=== PATIENT | male | born 1985 | race Caucasian/White ===

== ENCOUNTER → 2020-10-27 | Outpatient (CLI) | payer BC | END | disposition home or self-care (01) | LOC: LABWHC1 15:43 | PROVIDERS: ATTEND Emergency Medicine | DX: U07.1 COVID-19 (principal) | CPT/HCPCS: U0003; C9803; U0005 ==

== ENCOUNTER 2022-05-10 06:08 | Day surgery (SDC) | payer BC ==
[2022-05-08 15:49] VITALS: BMI 35.9
[~2022-05-10 06:08] MED LIST: HEPARIN SODIUM,PORCINE/PF 5,000 UNIT/0.5 ML SYRINGE SQ PRN; Pre Op ABX Message 1 EACH MISC MISCELLANE ONE
[2022-05-10] MEDS ORDERED: DEXAMETHASONE SOD PHOSPHATE 4 MG/ML 1 ML VIAL IV ONE (06:42)
[2022-05-10] MEDS ORDERED: MIDAZOLAM 2 MG/2 ML VIAL IV PRN (06:42)
[2022-05-10] MEDS ORDERED: ONDANSETRON 4 MG/2 ML VIAL IVP ONE (06:42)
[2022-05-10] MEDS ORDERED: SCOPOLAMINE 1 MG/72 HR PATCH TRANSDERM ONE (06:42)
[2022-05-10] MEDS ORDERED: GABAPENTIN 300 MG CAP PO STA (06:55)
[2022-05-10] MEDS ORDERED: ACETAMINOPHEN TAB 500 MG TAB PO STA (06:55)
[2022-05-10] MEDS ORDERED: MELOXICAM 7.5 MG TAB PO PRN (06:55)
--- NOTE | 2022-05-10 06:55 | P.GSHP ---
History of Present Illness H&P Date: 05/10/22 CHIEF COMPLAINT: Neck mass HISTORY OF PRESENT ILLNESS: The patient is a 72 year-old male with history of mass along the posterior neck. He presents today for surgical excision. PAST MEDICAL HISTORY: Please see list. PAST SURGICAL HISTORY: Please see list. MEDICATIONS: Please see list. ALLERGIES: Please see list. SOCIAL HISTORY: No illicit drug use FAMILY HISTORY: No reports of Crohn disease or ulcerative colitis. REVIEW OF ORGAN SYSTEMS: CONSTITUTIONAL: No reports of fevers or chills. GI: Denies any blood in stools or constipation. PHYSICAL EXAM: VITAL SIGNS: Stable SKIN: Well perfused. Good skin turgor. 4 cm lesion overlying the posterior neck Musculoskeletal: No clubbing cyanosis or edema GENERAL: Well developed and in no acute distress. Pleasant. HEENT: No sclera icterus. Extraocular movements grossly intact. Moist buccal mucosa. Head is atraumatic, normocephalic. Hears conversational speech. No nasal drainage. NECK: Supple without lymphadenopathy. No JV distention. CHEST: Non-labored respirations and equal bilateral excursions. CARDIOVASCULAR: Regular rate and rhythm. Palpable 2+ radial pulses. ABDOMEN: Soft. Non-tender. Nondistended. NEUROLOGIC: No focal or lateralizing signs. PSYCH: Appropriate affect. Alert and oriented to person, place and time. ASSESSMENT: 1. Posterior neck mass PLAN: 1. Will proceed of excision of left neck mass 2. DVT prophylaxis. 3. Antibiotic prophylaxis. 4. Time of recovery, at least one week. Past Medical History Past Medical History: No Reported History History of Any Multi-Drug Resistant Organisms: None Reported Past Surgical History: No Surgical Hx Reported Past Anesthesia/Blood Transfusion Reactions: No Reported Reaction Additional Past Anesthesia/Blood Transfusion Reaction / Comment(s): Has never had anesthesia. Past Psychological History: ADD/ADHD Smoking Status: Never smoker Past Alcohol Use History: Occasional Past Drug Use History: None Reported - Past Family History Mother Family Medical History: No Reported History Father Family Medical History: Cancer Additional Family Medical History / Comment(s): Prostate cancer. Medications and Allergies Home Medications Medication Instructions Recorded Confirmed Type Dextroamphetamine/Amphetamine 20 mg PO BID 05/08/22 05/08/22 History [Adderall 20 mg Tablet] Allergies Allergy/AdvReac Type Severity Reaction Status Date / Time No Known Allergies Allergy Verified 05/08/22 15:40 Surgical - Exam Vital Signs Temp Pulse Resp Pulse Ox 98.2 F 85 18 97 05/10/22 06:49 05/10/22 06:49 05/10/22 06:49 05/10/22 06:49
[2022-05-10] MEDS ORDERED: ceFAZolin 3 GM in SODIUM CHLORIDE 0.9% 100 ML IVPB PRN (07:00)
[2022-05-10] MEDS ORDERED: HYDROmorphone 0.5 MG/0.5 ML SYRINGE IVP PRN (07:00)
[2022-05-10] MEDS: LACTATED RINGERS 1,000 ML IV SCH ×2 (07:08→07:37)
[2022-05-10 07:32] LABS: Basophils % (A) 0 %; Eosinophils # (A) 0.3 k/uL (0-0.7); Eosinophils % (A) 5 %; HCT 43.5 % (39.0-53.0); HGB 14.8 gm/dL (13.0-17.5); Lymphocytes # (A) 1.5 k/uL (1.0-4.8); Lymphocytes % (A) 24 %; MCH 29.8 pg (25.0-35.0); MCV 87.7 fL (80.0-100.0); Mean Platelet Volume 8.8; Monocytes # (A) 0.5 k/uL (0-1.0); Monocytes % (A) 8 %; Neutrophils % (A) 62 %; Platelet Count 216 k/uL (150-450); RBC 4.95 m/uL (4.30-5.90); RDW 12.4 % (11.5-15.5); WBC 6.4 k/uL (3.8-10.6)
[2022-05-10] MEDS ORDERED: MIDAZOLAM 2 MG/2 ML VIAL ONE (07:32)
[2022-05-10] MEDS ORDERED: SUCCINYLCHOLINE CHLORIDE 200 MG/10 ML VIAL IV ONE (07:32)
[2022-05-10] MEDS ORDERED: PROPOFOL 10 MG/ML 20 ML VIAL IV ONE (07:32)
[2022-05-10] MEDS ORDERED: fentaNYL (PF) 50 MCG/ML 2 ML AMP ONE (07:32)
[2022-05-10] MEDS ORDERED: LIDOCAINE 2% INJ 20 MG/ML (2 ML VIAL) ONE (07:32)
[2022-05-10] MEDS ORDERED: LIDOCAINE 1%-EPI 1:100,000 20 ML VIAL SQ ONE (08:11)
[2022-05-10] MEDS ORDERED: LACTATED RINGERS 1,000 ML IV ONE (08:24)
--- NOTE | 2022-05-10 09:00 | P.OP ---
Date of Procedure: 05/10/22 Description of Procedure: SURGEON: BRIONNA MAHAJAN MD MILITARY NURSE: None. PREOPERATIVE DIAGNOSES: 1. Posterior neck mass 2. ADHD 3. Generalized anxiety disorder 4. Morbid obesity, BMI 36.4 POSTOPERATIVE DIAGNOSES: 1. Deep subcutaneous posterior neck mass, 6 x 4 cm 2. ADHD 3. Generalized anxiety disorder 4. Morbid obesity, BMI 36.4 PROCEDURES PERFORMED: 1. Excision of deep subcutaneous posterior neck mass, 6 x 4 cm 2. Intermediate closure of posterior neck incision, 8-cm Anesthesia: GETA, local Estimated Blood Loss (ml): 5 Pathology: other (neck mass) Condition: stable Disposition: same day COMPLICATIONS: None. FINDINGS: 1. Complex cystic/solid mass posterior neck deep to the subcutaneous tissue, 6 x 4 cm INDICATIONS: The patient is a 36-year-old male who presents with symptomatic posterior neck tumor. Benefits and risks of surgical intervention were described including bleeding, infection. Informed consent was obtained. DESCRIPTION OR PROCEDURE: In the preoperative area, the area of concern was marked with indelible marker. Patient was brought into the operating room. After general induction, he was placed in supine position. The neck and shoulders were prepped and draped in a standard sterile fashion with ChloraPrep. Timeout protocol was confirmed with the surgical team regarding the patient's name, procedure to be performed including preoperative medications. DVT prophylaxis was confirmed with SCDs. A field block was placed of the left neck. At the neck, the mass was measured and a transverse 8 cm posterior incision was made over the mass using #15 blade. Electro-Bovie cautery including sharp dissection was used to circumferential dissect the tumor 6 x 4 cm that extended deep to the subcutaneous tissue. The tumor was removed in total. Hemostasis was excellent. Superior and inferior flaps were created to allow for closure. The incision was closed in layers 0-Vicryl was placed for fascia, 3-0 Monocryl for the dermis in a running subcuticular fashion. The skin was cleansed and Exofin tape with liquid was applied as a third layer. The incision was covered with Optifoam dressing. Local anesthetic was placed. At the end of the procedure, needle, sponge, and instrument count was verified correct by medical or surgical instrument maker. Operative findings was shared with the patient's family who were pleased with the level of care. Plan - Discharge Summary Discharge Rx Participant: No New Discharge Prescriptions: New Ibuprofen [Motrin] 600 mg PO Q8HR PRN #30 tab PRN Reason: Pain Acetaminophen Tab [Tylenol Tab] 1,000 mg PO Q6HR PRN #30 tablet PRN Reason: Pain Continue Dextroamphetamine/Amphetamine [Adderall 20 mg Tablet] 20 mg PO BID ALPRAZolam [Xanax] 1 tab PO DIRECTED Discharge Medication List Dextroamphetamine/Amphetamine [Adderall 20 mg Tablet] 20 mg PO BID 05/08/22 [History] ALPRAZolam [Xanax] 1 tab PO DIRECTED 05/10/22 [History] Acetaminophen Tab [Tylenol Tab] 1,000 mg PO Q6HR PRN #30 tablet 05/10/22 [Rx] Ibuprofen [Motrin] 600 mg PO Q8HR PRN #30 tab 05/10/22 [Rx] Follow up Appointment(s)/Referral(s): Brionna Mahajan MD [STAFF PHYSICIAN] - 05/14/22 Patient Instructions/Handouts: Dermal Cyst Excision (GEN), *Surgery [facility] - Managing Your Pain After Surgery Without Opioids Activity/Diet/Wound Care/Special Instructions: DO NOT REMOVE DRESSING. SEE INSTRUCTIONS ON DRESSING May shower. No bath tub soaks for two weeks until May 24 Diet as tolerated. Use Tylenol and ibuprofen or Aleve scheduled for the next 24-48 hours for best pain relief. Use ice along incisions for today to prevent swelling. Discharge Disposition: HOME SELF-CARE
[2022-05-10 09:03] VITALS: RESP 16; TEMP 97.1
[2022-05-10 10:44] VITALS: BP 115/71; PULSE 67
== END 2022-05-10 10:53 | disposition home or self-care (01) ==
LOC: OR 06:08
PROVIDERS: ATTEND Surgery Plastic and Reconstructive Surgery
DX: L72.0 Epidermal cyst (principal); F90.9 Attention-deficit hyperactivity disorder, unspecified type; Z80.42 Family history of malignant neoplasm of prostate; F41.1 Generalized anxiety disorder; E66.01 Morbid (severe) obesity due to excess calories; Z68.36 Body mass index [BMI] 36.0-36.9, adult; Z79.899 Other long term (current) drug therapy
CPT/HCPCS: 88304; 85025; 21552; J2250; J0330; J1100; J0690; J2405; J3010; J2704; J1644; J2001